=== PATIENT | female | born 1945 | race Caucasian/White ===

== ENCOUNTER 2025-05-01 00:38 | Inpatient (IN) | payer MEDICARE, OTHER ==
[2025-05-01] MEDS ORDERED: Acetaminophen 325 MG TAB ONE (02:08)
[2025-05-01 02:32] LABS: #Basophils Less than 0.03 10x3/uL (0.0-0.2); #Eosinophils Less than 0.03 10x3/uL (0.0-0.5); #Monocytes 1.04 10x3/uL (0.0-1.1); #Neutrophils 8.92 10x3/uL (1.5-8.4); %Basophils 0.1 % (0.0-2.0); %Eosinophils 0.0 % (0.0-6.0); %Lymphocytes 8.2 % (18.0-47.0); %Monocytes 9.5 % (0.0-10.0); %Neutrophils 81.7 % (40.0-75.0); Hematocrit 37.1 % (34.9-44.5); Hemoglobin 12.2 g/dL (12.0-15.5); Mean Corpuscular Hemoglobin 30.0 pg (27.0-33.0); Mean Corpuscular Volume 91.4 fL (81.6-98.3); Platelet Count 188 10x3/uL (150-450); Red Blood Cell (RBC) Count 4.06 10x6/uL (3.90-5.03); White Blood Cell (WBC) Count 10.92 10x3/uL (3.5-10.5)
[2025-05-01 02:48] LABS: ALT (SGPT) 12 U/L (Less than 34); AST (SGOT) 21 U/L (11-34); Albumin 3.6 g/dL (3.1-4.5); Alkaline Phosphatase 41 U/L (40-110); Anion Gap 15 mmol/L (10-20); BUN (Urea Nitrogen) 18 mg/dL (9.8-20.1); Bilirubin, Total 1.5 mg/dL (0.3-1.2); CK (CPK) 553 U/L (29-168); Calc. Creatinine Clearance 0 mL/min (70-130); Calcium 9.6 mg/dL (7.8-10.44); Carbon Dioxide 25 mmol/L (23-31); Chloride 105 mmol/L (98-107); Globulin 3.0 g/dL (2.4-3.5); Glucose 172 mg/dL (83-110); Magnesium 1.6 mg/dL (1.6-2.6); Potassium 3.5 mmol/L (3.5-5.1); Sodium 141 mmol/L (136-145)
[2025-05-01 02:54] LABS: Troponin I 0.101 ng/mL (< 0.028)
[2025-05-01] MEDS ORDERED: Acetaminophen 325 MG TAB PO PRN (05:23)
[2025-05-01 06:09] LABS: Troponin I 0.083 ng/mL (< 0.028)
[2025-05-01 06:20] VITALS: BMI 37.8
[2025-05-01] MEDS ORDERED: metFORMIN 500 MG TAB PO SCH (09:00)
[2025-05-01 09:07] LABS: Troponin I 0.069 ng/mL (< 0.028)
[2025-05-01] MEDS: Enoxaparin 40 MG (0.4 mL) SYRINGE SC SCH (09:42)
[2025-05-01] MEDS: Aspirin 81 mg Enteric Coated Tablet PO SCH (09:43)
[2025-05-01] MEDS: Lisinopril 20 MG TAB PO SCH (09:43)
[2025-05-01] MEDS: Cholecalciferol 1,000 UNITS (25 MCG) TAB PO SCH (09:44)
[2025-05-01] MEDS: Magnesium Oxide 400 MG TAB PO SCH (09:44)
[2025-05-01] MEDS: PNEUMOC 20-VAL CONJ-DIP CRM/PF 0.5 ML SYRINGE IM ONE (15:01)
[2025-05-01] MEDS: Rosuvastatin 20 MG TAB PO SCH (20:55)
[2025-05-02 04:35] LABS: #Basophils Less than 0.03 10x3/uL (0.0-0.2); #Eosinophils 0.08 10x3/uL (0.0-0.5); #Monocytes 0.51 10x3/uL (0.0-1.1); #Neutrophils 3.68 10x3/uL (1.5-8.4); %Basophils 0.2 % (0.0-2.0); %Eosinophils 1.3 % (0.0-6.0); %Lymphocytes 28.3 % (18.0-47.0); %Monocytes 8.5 % (0.0-10.0); %Neutrophils 61.5 % (40.0-75.0); Hematocrit 34.1 % (34.9-44.5); Hemoglobin 10.9 g/dL (12.0-15.5); Mean Corpuscular Hemoglobin 29.9 pg (27.0-33.0); Mean Corpuscular Volume 93.7 fL (81.6-98.3); Platelet Count 169 10x3/uL (150-450); Red Blood Cell (RBC) Count 3.64 10x6/uL (3.90-5.03); White Blood Cell (WBC) Count 5.98 10x3/uL (3.5-10.5)
[2025-05-02 04:49] LABS: Anion Gap 11 mmol/L (10-20); BUN (Urea Nitrogen) 22 mg/dL (9.8-20.1); Calc. Creatinine Clearance 82 mL/min (70-130); Calcium 9.3 mg/dL (7.8-10.44); Carbon Dioxide 23 mmol/L (23-31); Chloride 111 mmol/L (98-107); Glucose 130 mg/dL (83-110); Potassium 3.4 mmol/L (3.5-5.1); Sodium 142 mmol/L (136-145)
[2025-05-03 10:22] LABS: Anion Gap 11 mmol/L (10-20); BUN (Urea Nitrogen) 20 mg/dL (9.8-20.1); Calc. Creatinine Clearance 85 mL/min (70-130); Calcium 9.3 mg/dL (7.8-10.44); Carbon Dioxide 25 mmol/L (23-31); Chloride 110 mmol/L (98-107); Glucose 150 mg/dL (83-110); Potassium 3.2 mmol/L (3.5-5.1); Sodium 143 mmol/L (136-145)
[2025-05-03] MEDS: Potassium Bicarbonate/Cit Ac 20 MEQ TAB PO SCH (12:48)
[2025-05-04 10:02] VITALS: TEMP 98.2
[2025-05-04 13:32] VITALS: BP 150/65
== END 2025-05-04 12:40 | DRG 557 ==
LOC: CSHERS 00:38 → CSHTELE 05:17 → OBSVTOIN 13:24
PROVIDERS: ADMIT Family Medicine; ATTEND Student in an Organized Health Care Education/Training Program
PROC: 3E0234Z Introduction of Serum, Toxoid and Vaccine into Muscle, Percutaneous Approach (ICD-10-PCS; principal; 2025-05-01)
DX: M62.82 Rhabdomyolysis (principal); I21.A1 Myocardial infarction type 2; E87.20 Acidosis, unspecified; N17.9 Acute kidney failure, unspecified; T79.6XXA Traumatic ischemia of muscle, initial encounter; S90.31XA Contusion of right foot, initial encounter; I45.19 Other right bundle-branch block; I44.4 Left anterior fascicular block; F10.90 Alcohol use, unspecified, uncomplicated; E11.22 Type 2 diabetes mellitus with diabetic chronic kidney disease; E11.65 Type 2 diabetes mellitus with hyperglycemia; E87.6 Hypokalemia; I12.9 Hypertensive chronic kidney disease with stage 1 through stage 4 chronic kidney disease, or unspecified chronic kidney disease; N18.32 Chronic kidney disease, stage 3b; W18.30XA Fall on same level, unspecified, initial encounter; Z96.651 Presence of right artificial knee joint; R29.6 Repeated falls; E04.1 Nontoxic single thyroid nodule; Z86.73 Personal history of transient ischemic attack (TIA), and cerebral infarction without residual deficits; Z90.49 Acquired absence of other specified parts of digestive tract; Z90.710 Acquired absence of both cervix and uterus; Z98.890 Other specified postprocedural states; Z88.5 Allergy status to narcotic agent; Z87.442 Personal history of urinary calculi; Z23 Encounter for immunization
CPT/HCPCS: 36415; 36416; 70450; 71045; 72125; 72170; 80048; 80053; 82550; 83605; 83735; 84484; 85025; 93005; 96372; G0378; J1650; J7030; J7120